=== PATIENT | female | born 2000 | race Caucasian/White ===

== ENCOUNTER → 2019-02-12 | Outpatient (CLI) | payer OTHER ==
--- NOTE | 2019-02-16 12:13 | PF ---
[address] [address] PULMONARY FUNCTION REPORT Name: SHAILESH CLARK Room: [facility] Ghosh#: [id number] Admission: 02/12/19 Attend Phys: VINNIE COHEN Discharge: Date of : 89 Report #: [id number] THIS REPORT FOR: //name// CC: VINNIE LLAMAS DESCRIPTION OF PROCEDURE: A spirogram shows a normal forced vital capacity, normal FEV1. FEV1/FVC ratio was 71%. The FEV1 improved from 2.49-2.7 with bronchodilator treatment, which is 11%. Midflow rate was decreased at 46%. The patient was able to exhale to 8 seconds with acceptable spirogram results. Plethysmography showed normal lung capacity with total lung capacity. Either lung volumes were normal. Diffusion capacity was decreased at 72%. A clinical correlation is indicated. ASSESSMENT AND PLAN: Though the patient has normal lung volume and normal FEV1/FVC, her FEV1 to FVC ratio at her age was on the lower limit of normal and has significant reversibility. Suggest clinical correlation for obstructive lung disease. The patient also has decreased diffusion. Clinical correlation. Decreased alveolar capillary diffusion could be related to anemia either a cardiac and pulmonary etiology is recommended. A clinical correlation is recommended. <ELECTRONICALLY SIGNED> By: Mars Giron MD 02/16/19 1213 [id number] Hayden Giron MD /batsheva
== END ==
LOC: M.PUL 02-06 11:00
DX: R06.00 Dyspnea, unspecified (principal)